=== PATIENT | female | born 1945 | race Caucasian/White ===

== ENCOUNTER 2017-10-27 13:13 | Inpatient (IN) | payer OTHER, MEDICAID ==
[~2017-10-27] VITALS: Ht 160 cm; Wt 54.0 kg
[2017-10-27 14:06] LABS: BASOPHIL % 0.2 % (0-2); PLATELET COUNT 180 x10^3mcL (130-400); RED CELL DISTRIBUTION WIDTH 13.3 % (11.5-14.5)
[2017-10-27 14:19] LABS: ALKALINE PHOSPHATASE 70 U/L (46-116); ALT/SGPT 30 U/L (14-59); AST/SGOT 21 U/L (15-37); BILIRUBIN TOTAL 0.4 mg/dL (0.20-1.00); CALCIUM 9.3 mg/dL (8.5-10.1); CARBON DIOXIDE 30.3 mmol/L (21-32); CHLORIDE SERUM 101 mmol/L (98-107); CREATININE SERUM 0.6 mg/dL (0.6-1.0); POTASSIUM SERUM 3.8 mmol/L (3.5-5.1); SODIUM SERUM 141 mmol/L (136-145); TOTAL PROTEIN, SERUM 7.5 g/dL (6.4-8.2)
[2017-10-27 14:22] LABS: ALBUMIN 3.3 g/dL (3.4-5.0)
[2017-10-27 14:24] LABS: GLUCOSE SERUM 53 mg/dL (74-106)
[2017-10-27 14:26] LABS: T3 TOTAL 3.82 ng/mL
[2017-10-27 14:58] LABS: CALCIUM 9.6 mg/dL (8.5-10.1); FREE T4 3.48 ng/dL (0.76-1.46); MAGNESIUM 1.6 mg/dL (1.8-2.4)
[2017-10-27 15:02] LABS: FREE THYROXINE INDEX 6.7 ug/dL (1.4-4.5); T4(THYROXINE) 15.6 ug/dL (4.7-13.3); T4(THYROXINE) 16.1 ug/dL (4.7-13.3)
[2017-10-27 15:58] LABS: UA SPECIFIC GRAVITY <=1.005 (1.005-1.035); microscopic required? YES; urine erythrocyte 1+ (NEGATIVE)
[2017-10-27 16:35] LABS: AMPHETAMINE QUAL UR NONE DETECTED (NEG <=1000)
[2017-10-27] MEDS ORDERED: METFORMIN HCL1000 MG PO (16:49)
[2017-10-27] MEDS ORDERED: GLIPIZIDE10 M2 PO (16:50)
[2017-10-27] MEDS ORDERED: LISINOPRIL20 MG PO (16:50)
[2017-10-27] MEDS ORDERED: METHIMAZOLE5 MG PO (16:51)
[2017-10-27] MEDS ORDERED: HYDROCHLOROTHIA25 MG PO (16:51)
[2017-10-27 18:01] LABS: CHOLESTEROL/HDL RATIO 1.7; PHOSPHOROUS 3.9 mg/dL (2.5-4.9)
[2017-10-27 19:20] VITALS: BP 138/58
[2017-10-28 05:36] VITALS: BP 125/61
[2017-10-28 06:23] LABS: BASOPHIL % 0.4 % (0-2); PLATELET COUNT 170 x10^3mcL (130-400); RED CELL DISTRIBUTION WIDTH 13.2 % (11.5-14.5)
[2017-10-28 08:27] VITALS: BP 141/62
[2017-10-28 10:00] LABS: CALCIUM 9.5 mg/dL (8.5-10.1); CARBON DIOXIDE 32.8 mmol/L (21-32); CHLORIDE SERUM 99 mmol/L (98-107); CREATININE SERUM 0.6 mg/dL (0.6-1.0); GLUCOSE SERUM 142 mg/dL (74-106); MAGNESIUM 2.2 mg/dL (1.8-2.4); PHOSPHOROUS 4.3 mg/dL (2.5-4.9); POTASSIUM SERUM 3.9 mmol/L (3.5-5.1); SODIUM SERUM 137 mmol/L (136-145)
[2017-10-28 13:42] VITALS: BP 119/56
[2017-10-28 17:50] VITALS: BP 128/56
[2017-10-28 21:15] VITALS: BP 107/57
[2017-10-29 05:38] VITALS: BP 116/58
[2017-10-29 06:18] LABS: CALCIUM 9.3 mg/dL (8.5-10.1); CARBON DIOXIDE 28.2 mmol/L (21-32); CHLORIDE SERUM 100 mmol/L (98-107); CREATININE SERUM 0.6 mg/dL (0.6-1.0); GLUCOSE SERUM 124 mg/dL (74-106); MAGNESIUM 1.7 mg/dL (1.8-2.4); PHOSPHOROUS 4.2 mg/dL (2.5-4.9); POTASSIUM SERUM 3.3 mmol/L (3.5-5.1); SODIUM SERUM 136 mmol/L (136-145)
[2017-10-29 09:44] VITALS: BP 109/60
[2017-10-29 10:20] VITALS: BP 109/60
[2017-10-29 12:54] VITALS: BP 117/65
== END 2017-10-29 14:11 | disposition home or self-care (01) | DRG 73 ==
LOC: ED 13:13 → DU 17:19
PROVIDERS: Emergency Medicine; Family Medicine
DX: G90.8 Other disorders of autonomic nervous system (principal); N17.0 Acute kidney failure with tubular necrosis; E44.1 Mild protein-calorie malnutrition; E11.649 Type 2 diabetes mellitus with hypoglycemia without coma; W18.2XXA Fall in (into) shower or empty bathtub, initial encounter; S09.90XA Unspecified injury of head, initial encounter; E11.65 Type 2 diabetes mellitus with hyperglycemia; E05.90 Thyrotoxicosis, unspecified without thyrotoxic crisis or storm; E83.42 Hypomagnesemia; E87.6 Hypokalemia; R26.9 Unspecified abnormalities of gait and mobility; M71.22 Synovial cyst of popliteal space [Baker], left knee; S50.12XA Contusion of left forearm, initial encounter; I10 Essential (primary) hypertension; Z85.3 Personal history of malignant neoplasm of breast; Y93.89 Activity, other specified; Y99.8 Other external cause status; Z68.21 Body mass index [BMI] 21.0-21.9, adult; Y92.031 Bathroom in apartment as the place of occurrence of the external cause; Z90.710 Acquired absence of both cervix and uterus; Z90.13 Acquired absence of bilateral breasts and nipples; Z98.891 History of uterine scar from previous surgery
CPT/HCPCS: 82962; 83880; 84439; 97110-GP; 97116-GP; 97530-GP; J3475; J3490; J7030; J7042; Q0092